=== PATIENT | male | born 1955 | race African-American/Black ===

== ENCOUNTER 2017-03-31 21:11 | Emergency (ER) | payer BC ==
[~2017-03-31] VITALS: Ht 188 cm; Wt 89.8 kg
--- NOTE | ~2017-03-31 | EKG ---
PATIENT: LICO ARENAS UNIT #: [id number] Ventricular Rate: 64 BPM Atrial Rate: 64 BPM P-R Interval: 138 ms QRS Duration: 86 ms Q-T Interval: 418 ms QTC Calculation(Bezet): 431 ms P [place]: 52 degrees Calculated R [place]: 16 degrees Calculated T [place]: 29 degrees Diagnosis Line: Sinus rhythm with Premature atrial complexes Diagnosis Line: Otherwise normal ECG Diagnosis Line: No previous ECGs available Diagnosis Line: Confirmed by BRANDON BORGES MD ([id number]) on Diagnosis Line: 04/01/2017 7:54:59 AM INTERPRETING MD: JONY GORDON
[~2017-03-31 21:11] MED LIST: COMPAZINE10 M2 PO; IBUPROFEN800 MG PO
[2017-03-31 22:53] LABS: BASOPHIL% 0.3 % (0-2.5); EOSINOPHIL# 0.1 X10e3 (0-0.7); EOSINOPHIL% 1.1 % (0.0-7.0); HEMATOCRIT 46.1 % (38.0-50.0); HEMOGLOBIN 15.2 gm/dL (13.0-16.0); LYMPHOCYTE# 1.3 X10e3 (1.0-3.5); MEAN CELL VOLUME 90.5 FL (83-96); MEAN CORPUSCULAR HEMOGLOBIN 29.7 PG (28-34); MEAN CORPUSCULAR HGB CONC 32.9 g/dL (30-36); MEAN PLATELET VOLUME 7.7 FL (6.5-11.5); MONOCYTE# 0.5 X10e3 (0-1.0); MONOCYTE% 5.9 % (3.0-12.0); NEUTROPHIL# 6.3 X10e3 (1.5-7.1); NEUTROPHIL% 76.7 % (40-75); PLATELET COUNT 246 X10e3 (140-420); RED CELL DISTRIBUTION WIDTH 14.9 % (11.0-15.5); WHITE BLOOD COUNT 8.2 X10e3 (4.0-10.5)
[2017-03-31 22:58] LABS: DIFF IND NO
[2017-03-31 23:10] LABS: POC - CKMB 23.3 ng/mL (0.0-7.9); POC - TROPONIN <0.05 ng/mL (<=0.05)
[2017-03-31 23:12] LABS: CREATININE SERUM 1.2 mg/dL (0.6-1.4); GLOM FILT RATE Estimated 75.2 mL/min (>60); POTASSIUM 3.4 mmol/L (3.5-5.1)
[2017-04-01 01:20] LABS: URINE SOURCE CLEAN CATCH
[2017-04-01 01:25] LABS: CULTURE INDICATED? NO; URINE APPEARANCE CLEAR; URINE BILIRUBIN NEG (NEG); URINE BLOOD NEG (NEG); URINE COLOR YELLOW; URINE GLUCOSE NORM (NEG); URINE KETONE NEG (NEG); URINE LEUKOCYTE ESTERASE NEG (NEG); URINE NITRATE NEG (NEG); URINE PH 6.5 (5-8); URINE PROTEIN NEG (NEG); URINE UROBILINOGEN NORM (NEG)
== END 2017-04-01 02:10 | disposition home or self-care (01) ==
LOC: CED 21:11
PROVIDERS: Emergency Medicine
DX: T67.5XXA Heat exhaustion, unspecified, initial encounter (principal); I49.3 Ventricular premature depolarization; I49.1 Atrial premature depolarization; I10 Essential (primary) hypertension; F17.200 Nicotine dependence, unspecified, uncomplicated
CPT/HCPCS: 36415; 80048; 81003; 82550; 82553; 84484; 85025; 93005; 96360; 99284; J2405